=== PATIENT | female | born 1975 ===

== ENCOUNTER 2024-01-02 09:19 | Day surgery (SDC) | payer BC ==
[2023-12-29 16:43] VITALS: BMI 27.4
[2024-01-02 10:35] VITALS: RESP 18; TEMP 97.8
[2024-01-02 10:54] VITALS: BP 118/70; PULSE 70
== END 2024-01-02 10:54 | disposition home or self-care (01) ==
LOC: FASU-ENDO 09:19
PROVIDERS: ATTEND Internal Medicine Gastroenterology
PROC: 0DJD8ZZ Inspection of Lower Intestinal Tract, Via Natural or Artificial Opening Endoscopic (ICD-10-PCS; principal; 2024-01-02 10:11)
DX: Z12.11 Encounter for screening for malignant neoplasm of colon (principal); K57.30 Diverticulosis of large intestine without perforation or abscess without bleeding; K64.1 Second degree hemorrhoids